=== PATIENT | female | born 1975 | race American Indian/Alaskan Native ===

== ENCOUNTER 2017-08-06 11:28 | Outpatient (CLI) | payer OTHER ==
[2017-08-06 12:06] LABS: Blood Urea Nitrogen 13 mg/dL (7-17)
--- NOTE | 2017-08-06 15:14 | Cat Scan Report ---
CT ABDOMEN AND PELVIS WITH CONTRAST INDICATION: Abdominal pain, chronic pelvic pain. COMPARISON: None similar at this institution. FINDINGS: Abdomen and pelvis CT performed following oral contrast and intravenous administration of 100 cc of Omnipaque 300. LUNG BASES: Mild air-filled distal esophageal wall prominence/thickening, not excluded for gastroesophageal reflux and/or hiatal hernia, amongst others. ABDOMEN: Cholecystectomy clips. Left hepatic lobe tip touches the spleen in the left upper quadrant. Subtle diffuse fatty hepatic infiltration not entirely excluded. Otherwise unremarkable liver, spleen, pancreas, adrenals, aorta, IVC, kidneys and opacified bowel. Normal appendix. No ascites. Few small subcentimeter retroperitoneal lymph nodes, though the largest left para-aortic measures 1.2 cm, axial image 176, series 2. Healed midline ventral incision. PELVIS: Uterus surgically absent. Mild rectosigmoid stool. Unremarkable urinary bladder. No free fluid or significant adenopathy. Mild T12-L1 degenerative spurring. CONCLUSION: No acute CT abnormality with various incidental findings as cholecystectomy, hysterectomy, and questionable subtle fatty hepatic infiltration, amongst others, as above. Please correlate. Thank you for the opportunity to participate in this patient's care.
== END 2017-08-06 11:29 | disposition home or self-care (01) ==
LOC: CT 11:28
PROVIDERS: ATTEND Obstetrics & Gynecology Gynecology
DX: G89.29 Other chronic pain (principal); R10.9 Unspecified abdominal pain; R10.2 Pelvic and perineal pain; M53.85 Other specified dorsopathies, thoracolumbar region; F17.200 Nicotine dependence, unspecified, uncomplicated; Z90.49 Acquired absence of other specified parts of digestive tract; Z90.710 Acquired absence of both cervix and uterus
CPT/HCPCS: 36415; 74177; 82565; 84520; Q9967

== ENCOUNTER 2017-08-28 10:54 | Observation (INO) | payer OTHER ==
[2017-08-26 08:54] LABS: Basophils % (Auto) 0.4 % (0.0-1.8); Eosinophils % (Auto) 1.2 % (0.0-4.3); Hematocrit 38.3 % (30.3-42.9); Hemoglobin 12.3 gm/dl (10.1-14.3); Mean Corpuscular HGB Conc 32 % (30-34); Mean Corpuscular Hemoglobin 26 pg (28-32); Mean Corpuscular Volume 81 fl (79-97); Platelet Count 198 K/mm3 (140-440); Red Blood Count 4.74 M/mm3 (3.65-5.03); Red Cell Distribution Width 14.6 % (13.2-15.2); White Blood Count 5.9 K/mm3 (4.5-11.0)
[2017-08-26 09:05] LABS: Anion Gap 18 mmol/L; BUN/Creatinine Ratio 19; Blood Urea Nitrogen 13 mg/dL (7-17); Calcium 8.9 mg/dL (8.4-10.2); Carbon Dioxide 26 mmol/L (22-30); Chloride 101.4 mmol/L (98-107); Glucose 109 mg/dL (65-100); Sodium 141 mmol/L (137-145)
--- NOTE | 2017-08-26 09:11 | Anesthesia Consultation ---
Anesthesia Consult and Med Hx Date of service: 08/26/17 - Airway Anesthetic Teeth Evaluation: Good ROM Head & Neck: Adequate Mental/Hyoid Distance: Adequate Mallampati Class: Class II Intubation Access Assessment: Probably Good - Pulmonary Exam CTA: Yes - Cardiac Exam Cardiac Exam: RRR - Pre-Operative Health Status ASA Pre-Surgery Classification: ASA3 Proposed Anesthetic Plan: General Nerve Block: TAP - Pulmonary Hx Smoking: Yes (former) Hx Sleep Apnea: Yes - Cardiovascular System Hx Hypertension: Yes (x 7 yrs) - Central Nervous System Hx Psychiatric Problems: No - Other Systems Hx Alcohol Use: Yes (occas) Hx Cancer: No Hx Obesity: Yes
[~2017-08-28 10:54] MED LIST: NACL 0.9% 1000 ML 1,000 ML IV SCH; NEURONTIN PO NR; PEPCID PO NR; SUBLIMAZE IV NR; VERSED IV NR
[2017-08-28] MEDS ORDERED: CLONIDINE 1,000 MCG/10 ML VIAL EP ONE (12:15)
[2017-08-28] MEDS ORDERED: DECADRON ONE ×2 (12:15→14:37)
[2017-08-28] MEDS ORDERED: XYLOCAINE 1% 20 mL ONE (12:15)
[2017-08-28] MEDS ORDERED: MARCAINE 0.5% 60 ML INFILTRATI ONE (12:15)
[2017-08-28] MEDS ORDERED: DILAUDID ONE (12:35)
[2017-08-28] MEDS ORDERED: DIPRIVAN 10 MG/ML IV ONE (12:35)
[2017-08-28] MEDS ORDERED: XYLOCAINE MPF 2% ONE (12:36)
[2017-08-28] MEDS ORDERED: ZEMURON IV ONE (12:36)
--- NOTE | 2017-08-28 12:58 | Anesthesia Day of Surgery ---
Anesthesia Day of Surgery - Day of Surgery Patient Examined: Yes Patient H&P Reviewed: Yes Patient is NPO: Yes Beta Blockers: Yes
[2017-08-28] MEDS ORDERED: ANCEF/STERILE WATER 2 GM/20 ML IV NR (13:00)
[2017-08-28] MEDS ORDERED: ZOFRAN ONE (14:38)
[2017-08-28] MEDS ORDERED: FLAGYL 500 MG/100 ML 500 MG/100 ML BAG IV ONE (15:26)
[2017-08-28] MEDS ORDERED: NACL 0.9% IR ONE ×2 (15:30)
[2017-08-28] MEDS ORDERED: NEOSTIGMINE ONE (15:32)
[2017-08-28] MEDS ORDERED: ROBINUL ONE (15:32)
--- NOTE | 2017-08-28 16:05 | Short Stay Summary ---
Short Stay Documentation Date of service: 08/28/17 - History H&P: obtained from office - Allergies and Medications Current Medications: Allergies morphine Allergy (Verified 08/25/17 17:20) Hives Home Medications Medication Instructions Recorded Confirmed Last Taken Type AtorvaSTATin [Lipitor] 40 mg PO QHS 08/25/17 08/25/17 08/27/17 History Metoprolol [Lopressor] 100 mg PO DAILY 08/25/17 08/28/17 08/28/17 08:00 History PARoxetine [Paxil] 10 mg PO DAILY 08/25/17 08/25/17 08/27/17 History Active Medications Cefazolin Sodium (Ancef/Sterile Water 2 Gm/20 Ml) 2 gm IV PREOP NR Stop: 08/28/17 23:59 Celecoxib (Celebrex) 200 mg PO PREOP NR Stop: 08/28/17 21:00 Last Admin: 08/28/17 11:35 Dose: 200 mg Famotidine (Pepcid) 20 mg PO PREOP NR Stop: 08/28/17 21:00 Last Admin: 08/28/17 11:35 Dose: 20 mg Fentanyl (Sublimaze) 100 mcg IV ONCE NR Stop: 08/28/17 21:00 Last Admin: 08/28/17 12:18 Dose: 100 mcg Gabapentin (Neurontin) 600 mg PO PREOP NR Stop: 08/28/17 21:00 Last Admin: 08/28/17 11:35 Dose: 600 mg Sodium Chloride (Nacl 0.9% 1000 Ml) 1,000 mls @ 100 mls/hr IV DIRECT FAUSTINA Midazolam HCl (Versed) 2 mg IV PREOP NR Stop: 08/28/17 21:00 Last Admin: 08/28/17 12:16 Dose: 2 mg - Brief post op/procedure progress note Date of procedure: 08/28/17 Pre-op diagnosis: chronic pelvic pain, s/p prior hysterectomy, h/o multiple prior surgeries Post-op diagnosis: same Procedure: eua, laparoscopic EDUAR, robotic EDUAR (per Dr. Harvey), robotic EDUAR and robotic removal of portion of left adnexal structure (per Dr. Guzmán) Anesthesia: GETA Findings: extensive large bowel and omental adhesions to anterior abdominal wall and bilateral pelvic side madrigal (left pelvic side wall more than right pelvic side wall). Normal appearing appendix. Right tube and right ovary were surgically absent. Left ovary was surgically absent. portion of left tube was adhesed to anterior abdominal wall. uterus and cervix were surgically absent Surgeon: DAY GUZMÁN Estimated blood loss: minimal Pathology: list (left fallopian tube with fimbrae) Specimen disposition: to lab Condition: stable - Disposition Condition at discharge: Good Disposition: DC-01 TO HOME OR SELFCARE Short Stay Discharge Plan Follow up with: PRIMARY CARE, [Primary Care Provider] - 7 Days
[2017-08-28] MEDS ORDERED: REGLAN IV PRN (16:14)
[2017-08-28] MEDS ORDERED: DULCOLAX PR PRN (16:14)
[2017-08-28] MEDS ORDERED: PHENERGAN PR PRN (16:14)
[2017-08-28] MEDS ORDERED: PERCOCET 5/325 PO PRN (16:14)
[2017-08-28] MEDS ORDERED: SODIUM CHLORIDE FLUSH SYRINGE 10 ML IV PRN (16:14)
[2017-08-28] MEDS ORDERED: ZOFRAN IV PRN (16:14)
[2017-08-28] MEDS ORDERED: NARCAN 0.4 MG/1 ML IV PRN (16:14)
[2017-08-28] MEDS ORDERED: MILK OF MAGNESIA PO PRN (16:14)
[2017-08-28] MEDS ORDERED: TYLENOL PO PRN (16:14)
[2017-08-28] MEDS ORDERED: ZOFRAN PO PRN (16:14)
[2017-08-28] MEDS ORDERED: REGLAN PO PRN (16:14)
[2017-08-28] MEDS ORDERED: BENADRYL PO PRN ×2 (16:20)
[2017-08-28] MEDS ORDERED: BENADRYL IV PRN (16:20)
[2017-08-28] MEDS ORDERED: AMBIEN PO PRN (16:20)
[2017-08-28] MEDS: TORADOL IV SCH ×2 (17:08→23:02)
[2017-08-28] MEDS: DILAUDID IV PRN ×3 (17:30→20:09)
[2017-08-28] MEDS ORDERED: WATER FOR IRRIG STERILE ONE (18:26)
[2017-08-28] MEDS ORDERED: DILAUDID IV PRN (19:56)
--- NOTE | 2017-08-28 20:22 | Operative Report ---
ADDENDUM Once the robot was docked and position, Dr. Guzmán noticed left lower quadrant adhesions with sigmoid colon draped and over the left pelvic brim and I was asked to lyse these adhesions. All these adhesions were lysed sharply with the help of electrocautery. There was a dense adhesion of the apex of the sigmoid colon attached to the abdominal wall. A small rim of fascia of the abdominal wall fascia was taken around this area to prevent injury to the bowel. The bowel was inspected closely at the end of the procedure. No bowel injury was noted. Dissection was taken in the pelvis and all adhesions were lysed and there is anterior lying fimbria. Otherwise, no other ovaries were noted. Once adequate approach was obtained for Dr. Guzmán, she completed remainder of her part of procedure. JOB# [id number] LYNDSAY/LINDSAY
--- NOTE | 2017-08-28 20:59 | Operative Report ---
PREOPERATIVE DIAGNOSES: Chronic pelvic pain, status post prior hysterectomy, history of multiple prior surgeries to include ventral hernia repair using mesh. POSTOPERATIVE DIAGNOSES: Chronic pelvic pain, status post prior hysterectomy, history of multiple prior surgeries to include ventral hernia repair using mesh. PROCEDURE: EUA, laparoscopic lysis of adhesions, robotic lysis of adhesions (per Dr. Harvey), robotic lysis of adhesions and robotic removal of portion of the left adnexal structure (per Dr. Guzmán). ANESTHESIA: General. FINDINGS: She had extensive large bowel and omental adhesions to the anterior abdominal wall (involving the implanted mesh along the anterior abdominal wall) and bilateral pelvic sidewalls (with left pelvic sidewall involving greater than right pelvic sidewall). She had normal appearing appendix. The right tube and right ovary were surgically absent. Her left ovary was surgically absent. Her left tube was adhesed to the anterior abdominal wall. The uterus and cervix were surgically absent. SURGEON: Karie Guzmán MD COAL DRIER OPERATOR: first trang Recio. ESTIMATED BLOOD LOSS: Minimal. PATHOLOGY: Left fallopian tube with fimbria (sent to lab). CONDITION: Stable. INDICATIONS: The patient is a 42-year-old female with abdominal pelvic pain. She is status post LUIS for symptomatic uterine fibroids via a midline skin incision in 2001 in [place]. She also underwent a right inguinal hernia repair and right ventral hernia repair using mesh. Approximately 5 years ago, she developed a pulling pain in the abdomen and pelvis that seems to emanate from the midline incision occurring multiple times a day, lasting approximately 15 seconds with each episode, worse with laughing and stretching to the right side. She had a pelvic ultrasound prior to surgery and was told that there was a lot of scar tissue present and that her ovaries were visualized. Her ultrasound report indication the scar tissue was felt throughout the mid pelvis and that there were right adnexal adhesions. Today, she is being brought to the operating room for EUA, laparoscopic robot assisted, lysis of adhesions, possible right salpingo-oophorectomy, left salpingo-oophorectomy, possible conversion to an open laparotomy with Dr. Harvey to assist. DESCRIPTION OF PROCEDURE: The patient brought to the operating room where general anesthesia was administered without difficulty. She was prepared and draped in usual sterile fashion, positioned in dorsal lithotomy position. Cole catheter was placed that in the bladder. A 5 mm optical trocar was placed in left lower quadrant subcostal margin midclavicular line. A 12 mm trocar was placed approximately 2 fingerbreadths superior to the umbilicus in the midline. Another 8 mm trocar was placed 8-10 cm to the right of the midline. An 8 mm trocar was placed 8-10 cm to the left of the midline. At this point, Dr. Harvey performed extensive laparoscopic lysis of adhesions. Please refer to his operative report. Once this was done, the remaining trocars could be placed. The robot was docked. Examination of the right pelvic sidewall was as mentioned above. There were extensive adhesions of the large bowel to the left pelvic sidewall. At this point, the fimbria was visible along the anterior wall, but the left ovary could not be visualized. It was not certain whether the patient had a left ovary at this point. Dr. Harvey returned to the robotic console and perform further lysis of adhesions. This can be found in his operative report. Once I returned to the console, I performed additional lysis of adhesions involving the bowel as well as removed the left fimbria from the anterior abdominal wall. Hemostasis was obtained using cautery, Kasey, and Surgicel. Following that, a sheet of Interceed was applied over the bowel where the lysis of adhesions had been performed. Once hemostasis was confirmed, all instruments removed from the abdomen and pelvis. All fascial incisions greater than 8 mm closed with 0 Vicryl suture. Skin was closed in subcuticular fashion. Dermabond was applied over the skin incisions. The patient tolerated the procedure well and was taken to recovery room awake in stable condition. JOB# [id number] KEN/LINDSAY
--- NOTE | 2017-08-28 21:16 | Operative Report ---
PREOPERATIVE DIAGNOSIS: Intra-abdominal abscess. POSTOPERATIVE DIAGNOSIS: Intra-abdominal abscess. PROCEDURE: Laparoscopic lysis of adhesions. SURGEON: Luis Harvey MD FISH RECEIVER: Dr. Guzmán. ANESTHESIA: General anesthesia. ESTIMATED BLOOD LOSS: Minimal. COMPLICATIONS: None. DRAINS: None. SPECIMEN: None. The patient tolerated the procedure well. FINDINGS: Multiple adhesions of her previous mesh placement taken down without difficulty. INDICATIONS: A 42-year-old female undergoing a bilateral oophorectomy robotically, had multiple adhesions. I was asked to take down the adhesions. DESCRIPTION OF PROCEDURE: Trocars were already placed. In the left upper quadrant, a 5 mm trocar and I placed another left lateral 5 mm trocar. Multiple omental adhesions were noted. With the help of the LigaSure device, we were able to lyse all the adhesions overlying the previous mesh placement all the way down into the pelvis. All adhesions were lysed under direct visualization. No bowel was noted in the adhesive area. The bowel was inspected and found to have no intra-abdominal injuries. After all the omentum was lysed and the pelvis was visualized, Dr. Guzmán proceeded to do her part of the procedure, placing trocars and the remainder of her robotic procedure. JOB# [id number] LYNDSAY/LINDSAY
[2017-08-28] MEDS: ANCEF/NS 1 GM/50 ML 1 GM/50 ML BAG IV SCH (21:53)
[2017-08-28] MEDS: FLAGYL 500 MG/100 ML 500 MG/100 ML BAG IV SCH (21:55)
[2017-08-28] MEDS ORDERED: COLACE PO SCH (22:00)
--- NOTE | 2017-08-29 00:05 | Consultation ---
REFERRING PHYSICIAN: Karie Guzmán MD REASON FOR CONSULT: Intraabdominal adhesions. HOSPITAL COURSE: A 42-year-old female who is undergoing a bilateral oophorectomy, had a previous history of ventral hernia repair and inguinal hernia repair, had multiple adhesions in the abdominal cavity. I was asked for lysis of adhesions, so she can get access for her procedure. MEDICATIONS: Atorvastatin, hydrocodone, ibuprofen, methocarbamol, metoprolol, paroxetine, valacyclovir and Zofran. ALLERGIES: MORPHINE. PAST MEDICAL HISTORY: Chronic back pain, herpes, hyperlipidemia, hypertension, migraine. PAST SURGICAL HISTORY: , ganglion cyst resection, ventral hernia repair, vaginal hysterectomy and inguinal hernia repair. SOCIAL HISTORY: Former smoker. Does drink socially. No drug use. PHYSICAL EXAMINATION: GENERAL: The patient draped hemodynamically stable. HEENT, RESPIRATORY, CARDIOVASCULAR: Unable to assess. ABDOMEN: Laparoscopic trocars are in, multiple adhesions intraabdominally noted. The patient is in lithotomy position. NEUROLOGIC: Unable to assess. ASSESSMENT: Intraabdominal scar, adhesions; will glad to lyse the adhesions. JOB# [id number] LYNDSAY/LINDSAY
[2017-08-29] MEDS: ANCEF/NS 1 GM/50 ML 1 GM/50 ML BAG IV SCH (05:20)
[2017-08-29] MEDS: TORADOL IV SCH (05:35)
[2017-08-29] MEDS: FLAGYL 500 MG/100 ML 500 MG/100 ML BAG IV SCH (05:35)
[2017-08-29 06:06] VITALS: BP 134/67
[2017-08-29 06:22] LABS: Hematocrit 37.1 % (30.3-42.9); Hemoglobin 11.7 gm/dl (10.1-14.3)
[2017-08-29] MEDS ORDERED: LOPRESSOR PO SCH (10:00)
[2017-08-29] MEDS ORDERED: PAXIL PO SCH (10:00)
[2017-08-29] MEDS ORDERED: PROTONIX IV SCH (10:00)
== END 2017-08-29 09:45 | disposition home or self-care (01) ==
LOC: OR 10:54 → OB 16:14
PROVIDERS: ADMIT Obstetrics & Gynecology Gynecology; ATTEND Obstetrics & Gynecology Gynecology
DX: K65.1 Peritoneal abscess (principal); K66.0 Peritoneal adhesions (postprocedural) (postinfection); G89.29 Other chronic pain; M54.9 Dorsalgia, unspecified; I10 Essential (primary) hypertension; E78.5 Hyperlipidemia, unspecified; G43.909 Migraine, unspecified, not intractable, without status migrainosus; Z88.6 Allergy status to analgesic agent; Z87.891 Personal history of nicotine dependence; Z83.3 Family history of diabetes mellitus; Z82.49 Family history of ischemic heart disease and other diseases of the circulatory system; Z82.3 Family history of stroke; R39.15 Urgency of urination
CPT/HCPCS: 36415; 49329; 64450; 80048; 85014; 85018; 85025; 86850; 86900; 86901; 88302; 96365; 96368; 96375; 96376; A4217; C1765; G0378; J0690; J0735; J1100; J1170; J1885; J2250; J2405; J2704; J2710; J3010; J7030; 88305